=== PATIENT | female | born 1960 ===

== ENCOUNTER 2019-03-28 11:15 | Day surgery (SDC) | payer OTHER | END 2019-03-28 20:15 | disposition home or self-care (01) | LOC: CIR.AMB 11:15 | DX: D12.9 Benign neoplasm of anus and anal canal (principal); K60.5 Anorectal fistula ==

== ENCOUNTER 2019-05-30 07:00 | Day surgery (SDC) | payer OTHER ==
[~2019-05-30 07:00] MED LIST: ZOLOF PO
== END 2019-05-30 17:30 | disposition home or self-care (01) ==
LOC: CIR.AMB 07:00
DX: K60.5 Anorectal fistula (principal)